=== PATIENT | female | born 1995 | race Hispanic/Latino ===

== ENCOUNTER → 2021-01-15 | Day surgery (SDC) | payer BC ==
[2021-01-14 16:34] VITALS: BMI 31.1
[~2021-01-15] MED LIST: Acetaminophen 500 MG TAB ONE; Dexamethasone 4 mg/ml Vial ONE; Fentanyl 100 MCG/2 ML VIAL ONE; Ketorolac Tromethamine 30 MG/ML VIAL ONE; Lidocaine 1% MPF 2 ML VIAL ONE; Lidocaine 1% PF 5 ML VIAL ONE; Methylergonovine 0.2 MG TAB PO SCH; Methylergonovine 0.2 MG/ML VIAL ONE; Midazolam HCl 2 mg/2 ml Vial ONE; Ondansetron PF 4 MG/2 ML Vial ONE; PROPOFOL 20 ML ONE
== END ==
LOC: CSHSDC 10:29
PROVIDERS: ATTEND Obstetrics & Gynecology
PROC: 10D17ZZ Extraction of Products of Conception, Retained, Via Natural or Artificial Opening (ICD-10-PCS; principal; 2021-01-15)
DX: O02.0 Blighted ovum and nonhydatidiform mole (principal); O08.1 Delayed or excessive hemorrhage following ectopic and molar pregnancy
CPT/HCPCS: 88305; J1100; J1885; J2210; J2250; J2405; J2704; J3010

== ENCOUNTER 2021-05-26 17:21 | Outpatient (CLI) | payer BC ==
[2021-05-26 17:45] LABS: Bilirubin Neg (Negative); Blood, Urine Negative (Negative); Clarity Clear (Clear); Glucose, Urine (Dipstick) Normal (Negative); Hemoglobin 13.2 g/dL (12.0-15.5); Ketone, Urine Negative (Negative); Leukocyte 25 (Negative); Mean Corpuscular HGB CONC 32.6 g/dL (32.0-36.0); Mean Corpuscular Hemoglobin 29.9 pg (27.0-33.0); Mean Corpuscular Volume 91.6 fl (81.6-98.3); Mean Platelet Volume 10.4 fl (7.4-10.4); Nitrite Negative (Negative); Platelet Count 259 10x3/uL (150-450); Protein, Urine (Dipstick) Negative (Neg-Trace); RBC Distribution Width 13.4 % (11.5-14.5); Red Blood Cell (RBC) Count 4.42 10x6/uL (3.90-5.03); Specific Gravity, Urine 1.025 (1.002-1.036); Urobilinogen Normal mg/dL (Less than 2); White Blood Cell (WBC) Count 6.9 10x3/uL (3.5-10.5)
[2021-05-26 18:06] LABS: BHCG - Serum Negative (NEGATIVE); Pregs Control Background? CLEAR/WHITE (CLR/WHITE); Pregs Control Bar Appear? YES (CONTROL BAR)
== END 2021-05-26 17:22 | disposition home or self-care (01) ==
LOC: CSHLAB 17:21
PROVIDERS: ATTEND Obstetrics & Gynecology
DX: Z01.812 Encounter for preprocedural laboratory examination (principal); N96 Recurrent pregnancy loss
CPT/HCPCS: 81003; 84703; 85027

== ENCOUNTER 2023-02-13 21:40 | Emergency (ER) | payer BC ==
[2023-02-13 23:57] LABS: Bilirubin Neg (Negative); Blood, Urine 250 (Negative); Clarity Clear (Clear); Glucose, Urine (Dipstick) Normal (Negative); Ketone, Urine Negative (Negative); Leukocyte 25 (Negative); Nitrite Negative (Negative); Protein, Urine (Dipstick) 30 mg/dl (Neg-Trace); Specific Gravity, Urine 1.015 (1.005-1.030); Urobilinogen Normal mg/dL (Less than 2)
[2023-02-14 00:12] LABS: CAUTI Indications for Culture Pregnancy; RBC/HPF Greater than 50 HPF (0-3)
[2023-02-14 00:13] LABS: Bacteria/HPF 2+ HPF (None Seen); Squamous Epithelial 0-3 HPF (0-3)
[2023-02-14 00:14] LABS: Urine Culture Reflex Yes Yes
[2023-02-14 00:35] LABS: SARS-CoV-2 NAA Rapid Test Not Detected (NotDetected)
== END 2023-02-14 00:35 | disposition home or self-care (01) ==
LOC: CSHERS 21:40
DX: O20.9 Hemorrhage in early pregnancy, unspecified (principal); Z3A.01 Less than 8 weeks gestation of pregnancy
CPT/HCPCS: 71045; 76815; 81001; 84702; 86900; 86901; 87086

== ENCOUNTER 2024-01-27 22:35 | Day surgery (SDC) | payer BC ==
[2024-01-27] MEDS ORDERED: hydrALAZINE 20 MG/ML VIAL SLOW IVP PRN (23:28)
[2024-01-28 01:16] LABS: Bilirubin Neg (Negative); Blood, Urine Negative (Negative); Glucose, Urine (Dipstick) Normal (Negative); Ketone, Urine Negative (Negative); Leukocyte Negative (Negative); Nitrite Negative (Negative); Protein, Urine (Dipstick) Negative (Neg-Trace); Urobilinogen Normal mg/dL (Less than 2); pH, Urine 6.5 (5.0-9.0)
[2024-01-28 01:17] LABS: Clarity Clear (Clear)
[2024-01-28 01:23] LABS: Bacteria/HPF 1+ HPF (None Seen); CAUTI Indications for Culture Pregnancy; RBC/HPF 0-3 HPF (0-3); WBC/HPF 0-3 HPF (0-3)
[2024-01-28 01:24] LABS: Urine Culture Reflex No No; Urine Culture Reflex Yes Yes
== END 2024-01-28 01:50 | disposition home or self-care (01) ==
LOC: CSHERS 22:35 → CSHLD/OP 22:48
PROVIDERS: ATTEND Obstetrics & Gynecology
DX: O26.852 Spotting complicating pregnancy, second trimester (principal); O26.22 Pregnancy care for patient with recurrent pregnancy loss, second trimester; O99.112 Other diseases of the blood and blood-forming organs and certain disorders involving the immune mechanism complicating pregnancy, second trimester; E72.12 Methylenetetrahydrofolate reductase deficiency; Z3A.21 21 weeks gestation of pregnancy; Z79.899 Other long term (current) drug therapy
CPT/HCPCS: 76817; 81001; 87086; 87480; 87510; 87660; 99284